=== PATIENT | male | born 1945 | race African-American/Black ===

== ENCOUNTER 2021-04-28 16:00 | Observation (INO) | payer OTHER ==
[2021-04-28 17:48] VITALS: BMI 24.4
[2021-04-28 18:10] LABS: Troponin I Less than 0.010 ng/mL (< 0.028)
[2021-04-28] MEDS ORDERED: Ondansetron ODT 4 MG TAB PO PRN (18:22)
[2021-04-28] MEDS ORDERED: Acetaminophen 325 MG TAB PO PRN (18:22)
[2021-04-28] MEDS ORDERED: Nitroglycerin 0.4 MG TAB (25 Tab Bottle) SL PRN (18:22)
[2021-04-28] MEDS ORDERED: Acetaminophen 650 MG Suppository PR PRN (18:22)
[2021-04-28] MEDS ORDERED: Ondansetron PF 4 MG/2 ML Vial IVP PRN (18:22)
[2021-04-28] MEDS ORDERED: Artificial Tear Sol 15 ML BOT EA EYE PRN (18:42)
[2021-04-28] MEDS ORDERED: Meloxicam 7.5 MG TAB PO PRN (18:51)
[2021-04-28] MEDS ORDERED: Albuterol Sulfate 2.5 mg/3 ml Neb NEB PRN (19:03)
[2021-04-28] MEDS ORDERED: Mometasone/Formoterol 200/5 60 PUFF INH SCH (20:00)
[2021-04-28 20:31] LABS: Troponin I Less than 0.010 ng/mL (< 0.028)
[2021-04-28] MEDS ORDERED: Rosuvastatin 10 MG TAB PO SCH (21:00)
[2021-04-28] MEDS: Dicyclomine 10 MG CAP PO SCH (21:22)
[2021-04-28] MEDS: Gabapentin 300 MG CAP PO SCH (21:22)
[2021-04-29 05:02] LABS: #Eosinphils 0.4 10x3/uL (0.0-0.5); #Monocytes 0.3 10x3/uL (0.0-1.1); #Neutrophils 2.3 10x3/uL (1.5-8.4); %Basophils 0.4 % (0.0-2.0); %Lymphocytes 43.8 % (18.0-47.0); %Neutrophils 42.6 % (40.0-75.0); Hemoglobin 13.2 g/dL (13.5-17.5); Mean Corpuscular HGB CONC 32.6 g/dL (32.0-36.0); Mean Corpuscular Hemoglobin 28.9 pg (27.0-33.0); Mean Corpuscular Volume 88.6 fl (81.2-95.1); Mean Platelet Volume 9.2 fl (7.4-10.4); Platelet Count 191 10x3/uL (150-450); RBC Distribution Width 13.2 % (11.5-14.5); Red Blood Cell (RBC) Count 4.57 10x6/uL (4.32-5.72); White Blood Cell (WBC) Count 5.3 10x3/uL (3.5-10.5)
[2021-04-29 05:06] LABS: Anion Gap 13 mmol/L (10-20); BUN (Urea Nitrogen) 11 mg/dL (8.4-25.7); Calc. Creatinine Clearance 76 mL/min (70-130); Calcium 8.9 mg/dL (7.8-10.44); Carbon Dioxide 24 mmol/L (23-31); Chloride 106 mmol/L (98-107); Glucose 97 mg/dL (83-110); Potassium 3.7 mmol/L (3.5-5.1); Sodium 139 mmol/L (136-145)
[2021-04-29] MEDS ORDERED: Mometasone/Formoterol 200/5 60 PUFF INH SCH (06:30)
[2021-04-29] MEDS: Dicyclomine 10 MG CAP PO SCH ×2 (08:59→14:24)
[2021-04-29] MEDS: Gabapentin 300 MG CAP PO SCH ×2 (08:59→14:24)
[2021-04-29] MEDS ORDERED: Amlodipine 10 MG TAB PO SCH (09:00)
[2021-04-29] MEDS ORDERED: Aspirin Chewable 81 MG TAB PO SCH (09:00)
[2021-04-29 15:48] VITALS: BP 131/67; TEMP 98.9
== END 2021-04-29 18:00 | disposition home or self-care (01) ==
LOC: CSHTELE 16:00
PROVIDERS: ADMIT Internal Medicine; ATTEND Family Medicine
DX: R10.32 Left lower quadrant pain (principal); G89.29 Other chronic pain; M54.2 Cervicalgia; E11.9 Type 2 diabetes mellitus without complications; N40.0 Benign prostatic hyperplasia without lower urinary tract symptoms; G30.9 Alzheimer's disease, unspecified; F02.80 Dementia in other diseases classified elsewhere, unspecified severity, without behavioral disturbance, psychotic disturbance, mood disturbance, and anxiety; I10 Essential (primary) hypertension; E78.5 Hyperlipidemia, unspecified; Z79.899 Other long term (current) drug therapy; Z87.891 Personal history of nicotine dependence
CPT/HCPCS: 36415; 74018; 80048; 85025; 94664; G0378

== ENCOUNTER 2021-10-25 15:51 | Emergency (ER) | payer OTHER ==
[2021-10-25 16:42] LABS: #Eosinphils 0.1 10x3/uL (0.0-0.5); #Monocytes 0.4 10x3/uL (0.0-1.1); #Neutrophils 3.5 10x3/uL (1.5-8.4); %Basophils 0.3 % (0.0-2.0); %Eosinophils 1.5 % (0.0-6.0); %Lymphocytes 40.1 % (18.0-47.0); %Monocytes 5.8 % (0.0-10.0); Hemoglobin 13.1 g/dL (13.5-17.5); Mean Corpuscular HGB CONC 32.8 g/dL (32.0-36.0); Mean Corpuscular Volume 88.5 fl (81.2-95.1); Mean Platelet Volume 9.2 fl (7.4-10.4); Platelet Count 251 10x3/uL (150-450); RBC Distribution Width 13.6 % (11.5-14.5); Red Blood Cell (RBC) Count 4.51 10x6/uL (4.32-5.72); White Blood Cell (WBC) Count 6.7 10x3/uL (3.5-10.5)
[2021-10-25 17:15] LABS: ALT (SGPT) 10 U/L (8-55); AST (SGOT) 23 U/L (5-34); Albumin 4.6 g/dL (3.4-4.8); Alkaline Phosphatase 84 U/L (40-110); Anion Gap 13 mmol/L (10-20); BUN (Urea Nitrogen) 13 mg/dL (8.4-25.7); Bilirubin, Total 0.7 mg/dL (0.2-1.2); Calc. Creatinine Clearance 0 mL/min (70-130); Calcium 9.9 mg/dL (7.8-10.44); Carbon Dioxide 26 mmol/L (23-31); Chloride 104 mmol/L (98-107); Globulin 3.8 g/dL (2.4-3.5); Glucose 110 mg/dL (83-110); Potassium 3.7 mmol/L (3.5-5.1); Protein, Total 8.4 g/dL (5.8-8.1); Sodium 139 mmol/L (136-145)
[2021-10-25 18:21] LABS: Bilirubin Neg (Negative); Blood, Urine Negative (Negative); Clarity Clear (Clear); Glucose, Urine (Dipstick) Normal (Negative); Ketone, Urine Negative (Negative); Leukocyte Negative (Negative); Nitrite Negative (Negative); Protein, Urine (Dipstick) Negative (Neg-Trace); Urobilinogen Normal mg/dL (Less than 2)
== END 2021-10-25 18:50 | disposition home or self-care (01) ==
LOC: CSHERS 15:51
DX: G30.9 Alzheimer's disease, unspecified (principal); F02.80 Dementia in other diseases classified elsewhere, unspecified severity, without behavioral disturbance, psychotic disturbance, mood disturbance, and anxiety; E78.5 Hyperlipidemia, unspecified; E78.00 Pure hypercholesterolemia, unspecified; I10 Essential (primary) hypertension; J44.9 Chronic obstructive pulmonary disease, unspecified; Z86.73 Personal history of transient ischemic attack (TIA), and cerebral infarction without residual deficits; Z87.891 Personal history of nicotine dependence
CPT/HCPCS: 70450; 80053; 81003; 85025